=== PATIENT | female | born 1960 | race Caucasian/White ===

== ENCOUNTER 2024-04-25 20:32 | Emergency (ER) | payer OTHER, SELFPAY ==
--- NOTE | ~2024-04-25 | CT_ITS ---
EXAMINATION: CT abdomen pelvis w con DATE: 04/26/2024 01:01 INDICATION: Right upper quadrant abdominal pain. Epigastric abdominal pain. TECHNIQUE: Computed tomography (CT) of the abdomen and pelvis was performed with 100 mL Omnipaque 350 intravenous contrast. Automated exposure control and iterative reconstruction technique were employe d. The dose-length product was 1195.21 mGy-cm. COMPARISON: None. FINDINGS: The visualized portions of the lung bases are clear without pneumonia or pleural effusion. The heart size is normal. No pericardial effusion. The liver and spleen are normal. There are changes of cholecystectomy. The pancreas, adrenal glands, and right kidney are normal. There is cortical thi nning of left kidney. There are no dilated loops of bowel. There is diverticulosis of the colon witho ut evidence of diverticulitis. The appendix is normal. There are no pathologically enlarged lymph nod es. There is no free intraperitoneal fluid. There is mild thoracic and lumbar spondylosis. IMPRESSION: 1. No etiology for the patient's symptoms. Reviewed, dictated and finalized at location E.
[2024-04-25 20:37] VITALS: BP 149/83; PULSE 78; RESP 20; TEMP 36.6; O2SAT 100
--- NOTE | 2024-04-25 23:52 | ED.GENADULT ---
HPI - General Adult General Chief complaint: Unspecified <Nya Chong PA-C - Last Filed: 04/26/24 01:54> Stated complaint: weird feeling in abdomen <Nya Chong PA-C - Last Filed: 04/26/24 01:54> Time Seen by Provider: 04/25/24 23:45 <Nya Chong PA-C - Last Filed: 04/26/24 01:54> History of Present Illness HPI narrative: 63-year-old female with a reported history of cholecystectomy, hysterectomy, hernia repair presents emergency department for epigastric abdominal pain for 1 day. Patient states the pain is intermittent. She states she used some Maalox yesterday and had a bowel movement seemed to have improved her pain, however has returned. She states she has been constipated recently. She denies nausea vomiting, chest pain or shortness of breath, dysuria or hematuria he. <Nya Chong PA-C - Last Filed: 04/26/24 01:54> Review of Systems Review of Systems: All systems reviewed & are unremarkable except as noted in HPI and below <Nya Chong PA-C - Last Filed: 04/26/24 01:54> Exam Narrative: GENERAL: Well-appearing, well-nourished, and in no acute distress. HEAD: Normocephalic, atraumatic. EYES: PERRLA and EOMI. ENT: Nares clear, no rhinorrhea or epistaxis. Mucous membranes moist. NECK: Supple. CHEST: Clear to auscultation. No respiratory distress. HEART: Regular rate and rhythm. No murmur heard. Normal peripheral pulses. ABDOMEN: Quiet bowel sounds. Abdomen soft with tenderness in the right lower quadrant and epigastrium. No rebound, guarding or rigidity. No CVA tenderness. EXTREMITIES: Normal range of motion. No edema. SKIN: Warm, dry, no rash. NEURO: No focal deficits. Alert and oriented x3 <Nya Chong PA-C - Last Filed: 04/26/24 01:54> Course STRUCTURAL TECHNICIAN/PA Physician Supervision I agree with midlevel documentation; I performed the medical decision making component of this evaluation. <Alicia Arriaga MD - Last Filed: 04/26/24 06:46> Reevaluation(s) Reevaluation #1: Patient started getting upset about the wait; she is already feeling better and wants to go, we let her know we were waiting for her CT to come back, she and her visitor came out and started yelling at staff, stating they don't care about the results and demanding that her IV be removed so she can go. AMA discussed, paperwork signed. Patient understands that she can return if she changes her mind for any other issues. <Alicia Arriaga MD - Last Filed: 04/26/24 06:46> Vital Signs Vital signs: Vital Signs Temperature 97.8 F 04/25/24 20:37 Pulse Rate 78 04/25/24 20:37 Respiratory Rate 20 04/25/24 20:37 Blood Pressure 149/83 H 04/25/24 20:37 Pulse Oximetry 100 04/25/24 20:37 Oxygen Delivery Room Air 04/25/24 20:37 Temperature 97.8 F 04/25/24 20:37 Pulse Rate 68 04/25/24 23:57 Respiratory Rate 18 04/25/24 23:57 Blood Pressure 153/93 H 04/25/24 23:57 Pulse Oximetry 100 04/25/24 23:57 Oxygen Delivery Room Air 04/25/24 20:37 <Nya Chong PA-C - Last Filed: 04/26/24 01:54> Vital Signs Temperature 97.8 F 04/25/24 20:37 Pulse Rate 78 04/25/24 20:37 Respiratory Rate 20 04/25/24 20:37 Blood Pressure 149/83 H 04/25/24 20:37 Pulse Oximetry 100 04/25/24 20:37 Oxygen Delivery Room Air 04/25/24 20:37 Temperature 97.8 F 04/25/24 20:37 Pulse Rate 68 04/25/24 23:57 Respiratory Rate 18 04/25/24 23:57 Blood Pressure 153/93 H 04/25/24 23:57 Pulse Oximetry 100 04/25/24 23:57 Oxygen Delivery Room Air 04/25/24 20:37 <Alicia Arriaga MD - Last Filed: 04/26/24 06:46> Medical Decision Making MDM Narrative Medical decision making narrative: 63-year-old female presents to emergency department for abdominal pain for 1 day. Vital stable. She is afebrile nontoxic appearing. Exam is significant for the above. EKG shows sinus rhythm with rate of 60 ppm, normal [place] interval, normal QRS duration, n
[2024-04-25 23:57] VITALS: BP 153/93; PULSE 68; RESP 18; O2SAT 100
--- NOTE | 2024-04-26 00:10 | ECG_ITS ---
Test Date: 2024-04-26 00:10:31 Measurements Intervals [place] Rate: 61 P: 46 AK: 161 QRS: -18 QRSD: 81 T: 40 QT: 436 QTc: 440 Interpretive Statements SINUS RHYTHM LOW QRS VOLTAGE IN PRECORDIAL LEADS [QRS DEFLECTION < 1.0 mV IN CHEST LEADS] ANTERIOR MYOCARDIAL INFARCTION , OF INDETERMINATE AGE [40+ ms Q WAVE AND/OR ST/T ABNORMALITY IN V3/V4] INFERIOR MYOCARDIAL INFARCTION , PROBABLY OLD [40+ ms Q WAVE AND/OR ST/T ABNORMALITY IN II/aVF] No previous ECG available for comparison Electronically Signed On 04-26-2024 13:44:06 CDT by Clarence Gonzalez M.D.
[2024-04-26] MEDS: BELLADONNA ALK/PHENOB ELIX 10 ML, MAG HYDROX/ALUMINUM HYD/SIMETH 30 ML, LIDOCAINE HCL 2... PO (00:17)
[2024-04-26] MEDS: FAMOTIDINE 20 MG/2 ML VIAL IV PUSH (00:17)
[2024-04-26 00:21] LABS: Basophils Percent Auto 0.5 % (0.2-1.2); Eosinophils Absolute Auto 0.2 K/mm3 (0-0.3); Eosinophils Percent Auto 2.4 % (0-4.4); Hematocrit 43.5 % (37.0-47.0); Hemoglobin 14.8 g/dL (12.0-15.0); Immature Granulocyte Absolute 0.02 K/mm3 (0.00-0.031); Immature Granulocyte Percent A 0.2 % (0-0.5); Lymphocytes Absolute Auto 2.95 K/mm3 (0.9-3.2); Mean Corpuscular Hemoglobin 30.4 pg (26-34); Mean Corpuscular Volume 89.3 fl (80-100); Mean Platelet Volume 9.8 fl (7.4-10.4); Monocytes Absolute Auto 0.7 K/mm3 (0.1-0.6); Monocytes Percent Auto 8.1 % (2.6-8.5); Neutrophils Absolute Auto 4.5 K/mm3 (1.3-6.7); Neutrophils Percent Auto 53.8 % (45.5-73.1); Platelet Count Result 295 k/mm3 (150-375); Red Blood Count 4.87 M/mm3 (4.2-5.4); Red Cell Distribution Width 13.2 % (11.5-14.5); White Blood Count 8.4 K/mm3 (4.5-10.0)
[2024-04-26 00:33] LABS: Alanine Aminotransferase 20 U/L (6-35); Albumin Level 3.9 g/dL (3.5-5.1); Alkaline Phosphatase 67 U/L (38-126); Anion Gap 11 mmol/L (4-12); Aspartate Amino Transferase 22 U/L (14-36); Bilirubin,Total 0.7 mg/dL (0.2-1.3); Blood Urea Nitrogen 8 mg/dL (7-17); Calcium 8.8 mg/dL (8.4-10.2); Carbon Dioxide 23 mmol/L (22-30); Chloride 104 mmol/L (98-107); Estimated CRCL calculation 80 ml/min; Estimated Glomerular Filt Rate > 60; Glucose 100 mg/dL (65-110); Lactic Acid Reflex 1.4 mmol/L (0.7-2.0); Lipase 64 U/L (23-300); Potassium 3.3 mmol/L (3.4-5.0); Sodium 138 mmol/L (137-145)
[2024-04-26 00:44] LABS: Troponin I < 0.012 ng/mL (0.000-0.034)
[2024-04-26 01:04] LABS: Add Urine Microscopic? YES; Appearance Urine Cloudy (Clear); Bacteria Urine 4+ /hpf; Bilirubin Urine 1+ (Negative); Blood Urine Negative (Negative); Color Urine Dark Yellow (Yellow); Glucose Urine UA Negative (Negative); Ketones Urine 1+ mg/dL (Negative); Leukocyte Esterase Ur 2+ LEU/UL (Negative); Mucus Urine Present /lpf; Need Manual Microscopic Reviewed; Nitrate Urine Negative (Negative); Protein Urine 1+ mg/dL (Negative); Specific Grav Ur 1.027 (1.001-1.035); Squamous Epithelial Cell Urine Moderate /hpf (Few); WBC Urine 21-50 /hpf (0-3); pH Urine 5.5 (5.0-9.0)
[2024-04-26] MEDS: POTASSIUM CHLORIDE 20 MEQ PACKET (FOR LIQUID) 40 MEQ PO (02:02)
[2024-04-26 02:10] LABS: Magnesium 2.3 mg/dL (1.6-2.3)
--- NOTE | 2024-04-26 02:32 | PC.NURSE ---
Pt visitor came out of room yelling stating they were not going to wait for their CT results and they have been here for 5 hours. Pt visitor is yelling and cursing at [facility]. Pt was angry that we could not call them with the results once we get them from [facility]. This RN and NILESH Whitney go into pt room to state they can leave AMA and gave them a pamphlet to access their CT results. Or to call medical billing on Saturday for results. Pt and visitor sign out AMA at this time.
== END 2024-04-26 02:41 | disposition left against medical advice (07) ==
PROVIDERS: Physician Assistant; Emergency Provider Emergency Medicine
DX: N39.0 Urinary tract infection, site not specified (principal); Z90.49 Acquired absence of other specified parts of digestive tract; Z90.710 Acquired absence of both cervix and uterus
CPT/HCPCS: 36415; 74177; 80053; 81001; 83605; 83690; 83735; 84484; 85025; 87086; 87088; 93005; 96374; 99284; A9270; Q9967